=== PATIENT | male | born 1965 | race African-American/Black ===

== ENCOUNTER 2021-08-09 09:55 | Emergency (ER) | payer OTHER ==
[2021-08-09] MEDS ORDERED: Boostrix 0.5 ML (Tdap) VIAL ONE (10:41)
[2021-08-09] MEDS ORDERED: Bacitracin 1 PK ONE (10:41)
== END 2021-08-09 10:58 | disposition home or self-care (01) ==
LOC: ERS 09:55
DX: S51.812A Laceration without foreign body of left forearm, initial encounter (principal); W45.8XXA Other foreign body or object entering through skin, initial encounter
CPT/HCPCS: 90471; 90715